=== PATIENT | female | born 1965 | race Two or more races ===

== ENCOUNTER 2017-02-24 10:40 | Outpatient (CLI) ==
[2017-02-24 16:52] LABS: FLU INTERNAL QC INTERNAL QC VALID; RAPID FLU A NEGATIVE (NEGATIVE); RAPID FLU B NEGATIVE (NEGATIVE)
== END 2017-02-24 10:41 | disposition home or self-care (01) ==
LOC: LAB 10:40
PROVIDERS: ATTEND Nurse Practitioner Family
DX: J03.90 Acute tonsillitis, unspecified (principal)
CPT/HCPCS: 87651; 87804; 87880

== ENCOUNTER 2017-09-18 11:09 | Inpatient (IN) ==
[2017-09-18] MEDS ORDERED: SODIUM CHLORIDE 1,000 ML IV STA (12:13)
[2017-09-18] MEDS ORDERED: NORCO 10-325 PO STA (12:14)
[2017-09-18 12:24] LABS: BASOPHILS % (AUTO) 0.6 % (0.0-3.0); EOSINOPHILS # (AUTO) 0.1 K/ul (0.0-0.7); EOSINOPHILS % (AUTO) 0.7 % (0.0-7.0); HEMATOCRIT 43.3 % (37.0-47.0); HEMOGLOBIN 15.7 g/dl (12.0-16.0); IMMATURE GRANULOCYTE % (AUTO) 0.4 % (0.0-5.0); LYMPHOCYTES # (AUTO) 0.9 K/uL (0.60-3.4); LYMPHOCYTES % (AUTO) 11.9 (10.0-50.0); MEAN CORPUSCULAR HEMOGLOBIN 33.1 pg (27.0-31.0); MEAN CORPUSCULAR HGB CONC 36.3 (31.8-35.4); MEAN CORPUSCULAR VOLUME 91.4 fl (81.0-99.0); MONOCYTES # (AUTO) 0.4 K/uL (0.4-2.0); MONOCYTES % (AUTO) 5.6 (0-10); NEUTROPHILS # (AUTO) 5.8 K/ul (2.0-6.9); NEUTROPHILS % (AUTO) 80.8; PLATELET COUNT 193 10^3/uL (140-440); RED BLOOD COUNT 4.74 10^6/ul (4.20-5.40); WHITE BLOOD COUNT 7.16 K/ul (4.6-10.2)
[2017-09-18 12:33] LABS: ALBUMIN 3.3 g/dL (3.4-5.0); ALBUMIN/GLOBULIN RATIO 0.77; ANION GAP 11.8; BILIRUBIN,TOTAL 0.5 mg/dL (0.00-1.20); BUN/CREATININE RATIO 11.76; CREATININE 0.85 mg/dL (0.60-1.30); POTASSIUM 3.8 mmol/L (3.5-5.10); TOTAL PROTEIN 7.6 g/dL (6.4-8.2)
[2017-09-18 12:37] LABS: FLU INTERNAL QC INTERNAL QC VALID; RAPID FLU A NEGATIVE (NEGATIVE); RAPID FLU B NEGATIVE (NEGATIVE)
[2017-09-18 12:54] LABS: ABG BASE EXCESS -6 (-2.0-2.0); ABG PCO2 34.4 mmHg (35-45); ABG PH 7.363 (7.35-7.45)
[2017-09-18 12:55] LABS: ABG HCO3 19.6 (22.0-26.0); ABG TCO2 21 (22.0-28.0)
--- NOTE | 2017-09-18 13:17 | DI ---
EXAM: Chest two view, frontal and lateral views. HISTORY: Cough. COMPARISON: None available. FINDINGS: The heart size is normal. There is no pulmonary vascular congestion. The lungs are clear . No pleural effusion or pneumothorax is seen. No acute osseous abnormality identified. Posterior stabilization ninoska in the thoracolumbar spine is partially imaged. Additional hardware seen in the benjamin bcutaneous tissues of the low back, incompletely imaged. Surgical clips noted in the upper abdomen. IMPRESSION: No acute cardiopulmonary process.
[2017-09-18] MEDS ORDERED: SOLU-MEDROL 125 MG IVP STA (13:55)
[2017-09-18] MEDS ORDERED: SODIUM CHLORIDE 1,000 ML IV SCH (14:00)
--- NOTE | 2017-09-18 14:00 | ED.PDOC ---
General ED Provider: Dr. HALLEY CONTRERAS Chief Complaint: Respiratory Complaint Stated Complaint: cough, short of air Time Seen by Physician: 11:11 Mode of Arrival: Walk-In Information Source: Patient Exam Limitations: No limitations Primary Care Provider: UMA ALICIA Nursing and Triage Documentation Reviewed and Agree: Yes Respiratory Complaint Exam - Shortness of Air Complaint/Exam Onset/Duration: 2 day Symptoms Are: Still present Timing: Intermittent Initial Severity: Mild Current Severity: Mild Character: Reports: Dyspnea on exertion Aggravating: Reports: URI, Weather Alleviating: Reports: Bronchodilators, Upright position Associated Signs and Symptoms: Reports: Nasal congestion. Denies: Cough, Wheezing, Chest pain with cough, Chest pain, Fever, Chills, Diaphoresis, Dizziness, Calf pain, Calf swelling, Edema, Rapid breathing, Labored breathing, Decreased intake Related History: Reports: Similar episode History of Healthcare-Acquired Pneumonia: No Pulmonary Embolism Risk Factors: Reports: Smoking Cardiac Risk Factors: Reports: Smoking Pseudomonas Risk Factors: Reports: None Tuberculosis Risk Factors: Reports: None Home Oxygen Use: No Recent Stress Test: No Recent Echo/LV Function: No Respiratory Distress: Mild Stridor Present: No Tracheal Deviation: No Subcutaneous Emphysema: No Accessory Muscle Use: No Retractions: Not Present Diminished Breath Sounds: Yes Prolonged Expiratory Phase: Yes Unable to Speak Full Sentences: No Fatigue: No Leg Swelling: No Micaela's Sign Present: No Grunting Respirations: No Kussmaul Respirations: No Differential Diagnoses: Asthma, COPD Exacerbation, Pneumonia, Bronchitis, URI Review of Systems - Review Of Systems Constitutional: Reports: Malaise Eyes: Reports: No symptoms Ears, Nose, Mouth, Throat: Reports: No symptoms Respiratory: Reports: Cough, Wheezing Cardiac: Reports: No symptoms GI: Reports: No symptoms : Reports: No symptoms Musculoskeletal: Reports: No symptoms Skin: Reports: No symptoms Neurological: Reports: No symptoms Endocrine: Reports: No symptoms Hematologic/Lymphatic: Reports: No symptoms All Other Systems: Reviewed and Negative Past Medical History - Past Medical History Previously Healthy: Yes Endocrine: Reports: None Cardiovascular: Reports: None Respiratory: Reports: None Hematological: Reports: None Gastrointestinal: Reports: None Genitourinary: Reports: None Neuro/Psych: Reports: None Musculoskeletal: Reports: None Cancer: Reports: None Last Menstrual Period: n/a - Surgical History General Surgical History: Reports: None - Family History Family History: Reports: None - Social History Smoking Status: Current every day smoker Hx Substance Use: No Alcohol Screening: None Physical Exam - Physical Exam Appearance: Well-appearing, No pain distress, Well-nourished Eyes: FLORINA, EOMI, Conjunctiva clear ENT: Ears normal, Nose normal, Oropharynx normal Respiratory: Airway patent, Breath sounds clear, Breath sounds equal, Respirations nonlabored Cardiovascular: RRR, Pulses normal, No rub, No murmur GI/: Soft, Nontender, No masses, Bowel sounds normal, No Organomegaly Musculoskeletal: Normal strength, ROM intact, No edema, No calf tenderness Skin: Warm, Dry, Normal color Neurological: Sensation intact, Motor intact, Reflexes intact, Cranial nerves intact, Alert, Oriented Psychiatric: Affect appropriate, Mood appropriate Interpretation - Radiology Interpretation Radiology Interpretation By: Radiologist Radiology Results: No acute changes Physician Notification - Case Discussed Physician Notified: [email or web address] Time of Notification: 14:01 Admit To: Inpatient Critical Care Note - Critical Care Note Total Time (mins): 0 Course - Course Hematology/Chemistry: 09/18/17 12:08 09/18/17 12:08 Orders, Labs, Meds: Lab Review 09/18/17 09/18/17 09/18/17 12:08 12:08 12:15 WBC 7.16 RBC 4.74 Hgb 15.7 Hct 43.3 MCV 91.4 MCH 33.1 H MCHC 36.3 H RDW Coeff of Ivy 12.7 Plt Count 193 Immature Gran % (Auto) 0.4 Neut % (Auto) 80.8 Lymph % (Auto) 11.9 Vermillion % (Auto) 5.6 Eos % (Auto) 0.7 Baso % (Auto) 0.6 Immature Gran # (Auto) 0.0 Neut # 5.8 Lymph # 0.9 Vermillion # 0.4 Eos # 0.1 Baso # 0.0 Puncture Site O2 Saturation ABG pH ABG pCO2 ABG pO2 ABG HCO3 ABG Total CO2 ABG Base Excess Massimo Test FiO2 % Sodium 136 Potassium 3.8 Chloride 105 Carbon Dioxide 23 Anion Gap 11.8 BUN 10 Creatinine 0.85 Estimated GFR (MDRD) 71.00 BUN/Creatinine Ratio 11.76 Glucose 119 H Calcium 9.0 Total Bilirubin 0.50 AST 39 H ALT 35 Alkaline Phosphatase 107 H Total Protein 7.6 Albumin 3.3 L Globulin 4.3 Albumin/Globulin Ratio 0.77 Influenza A (Rapid) Negative Influenza B (Rapid) Negative 09/18/17 12:33 WBC RBC Hgb Hct MCV MCH MCHC RDW Coeff of Ivy Plt Count Immature Gran % (Auto) Neut % (Auto) Lymph % (Auto) Vermillion % (Auto) Eos % (Auto) Baso % (Auto) Immature Gran # (Auto) Neut # Lymph # Vermillion # Eos # Baso # Puncture Site Rr O2 Saturation 93.0 L ABG pH 7.363 ABG pCO2 34.4 L ABG pO2 70.0 L ABG HCO3 19.6 L ABG Total CO2 21 L ABG Base Excess -6 L Massimo Test + FiO2 % 21.0 Sodium Potassium Chloride Carbon Dioxide Anion Gap BUN Creatinine Estimated GFR (MDRD) BUN/Creatinine Ratio Glucose Calcium Total Bilirubin AST ALT Alkaline Phosphatase Total Protein Albumin Globulin Albumin/Globulin Ratio Influenza A (Rapid) Influenza B (Rapid) Orders Category Date Time Status ADMIT PATIENT INPATIENT .TO [facility] (MONITORED BED) ADMISSION 09/18/17 13: 55 Ordered ABG DRAW REQUEST Stat CARDIO 09/18/17 12:33 Completed EKG-(ED ONLY) Stat CARDIO 09/18/17 12:10 Completed EKG-(IP & OP ONLY) DAILY CARDIO 09/19/17 06:00 Ordered EKG-(IP & OP ONLY) DAILY CARDIO 09/20/17 06:00 Ordered EKG-(IP & OP ONLY) DAILY CARDIO 09/21/17 06:00 Ordered NEBULIZER TREATMENT Routine CARDIO 09/18/17 13:55 Ordered ACTIVITY .BR with BRP CARE 09/18/17 13:55 Ordered BLOOD GLUCOSE MONITORING ACCUCHECK Q6H CARE 09/18/17 13:55 Ordered TELEMETRY MONITORING TELE CARE 09/18/17 13:56 Ordered VITAL SIGNS Q8HR CARE 09/18/17 13:55 Ordered REGULAR DIET DIETARY 09/18/17 Lunch Ordered ED IV/MEDIPORT/POWERPORT .ONCE EMERGENCY 09/18/17 12:13 Active ABG Stat LAB 09/18/17 12:33 Completed CBC W/ AUTO DIFF DAILY@0600 LAB 09/19/17 06:00 Ordered CBC W/ AUTO DIFF DAILY@0600 LAB 09/20/17 06:00 Ordered CBC W/ AUTO DIFF Stat LAB 09/18/17 12:08 Completed COMPREHENSIVE METABOLIC PANEL DAILY@0600 LAB 09/19/17 06:00 Ordered COMPREHENSIVE METABOLIC PANEL DAILY@0600 LAB 09/20/17 06:00 Ordered COMPREHENSIVE METABOLIC PANEL Stat LAB 09/18/17 12:08 Completed CREATINE KINASE Q8H LAB 09/18/17 20:00 Ordered CREATINE KINASE Q8H LAB 09/19/17 04:00 Ordered MOLECULAR GROUP A STREP Stat LAB 09/18/17 12:15 Results RAPID FLU A/B Stat LAB 09/18/17 12:15 Completed STREP SCREEN Stat LAB 09/18/17 12:15 Results TROPONIN I Q8H LAB 09/18/17 20:00 Ordered TROPONIN I Q8H LAB 09/19/17 04:00 Ordered 0.9 % Sodium Chloride [Saline Flush] MEDS 09/18/17 12:11 Active 1 syr IVF PRN PRN Ceftriaxone Sodium [Rocephin] 1 gm MEDS 09/19/17 09:00 Ordered 0.9 % Sodium Chloride [Sodium Chloride] 50 ml IV DAILY Hydrocodone Bit/Acetaminophen [Mcallister 10-325] MEDS 09/18/17 12:14 Discontinued 1 tab PO ONCE STA Ipratropium/Albuterol Neb [Duoneb] MEDS 09/18/17 18:00 Ordered 1 vial NEB RTQ6H Methylprednisolone Sod Succ/Pf [Solu-Medrol 125 mg] MEDS 09/18/17 13:55 Stat 125 mg IVP ONCE STA Sodium Chloride 0.9% [Sodium Chloride] 1,000 ml MEDS 09/18/17 14:00 Ordered IV 75 mls/hr Sodium Chloride 0.9% [Sodium Chloride] 1,000 ml MEDS 09/18/17 12:13 Discontinued IV BOLUS CHEST, 2 VIEWS PA & LAT Stat RADS 09/18/17 12:01 Completed Medications Generic Name Dose Route Start Last Admin Trade Name Freq PRN Reason Stop Dose Admin Albuterol/Ipratropium 1 vial 09/18/17 18:00 Duoneb NEB RTQ6H SHAYY Sodium Chloride 1 syr 09/18/17 12:11 Saline Flush IVF PRN PRN To flush IV Discontinued Medications Generic Name Dose Route Start Last Admin Trade Name Freq PRN Reason Stop Dose Admin Acetaminophen/Hydrocodone Bitart 1 tab 09/18/17 12:14 09/18/17 12:37 Mcallister 10-325 PO 09/18/17 12:15 1 tab ONCE STA Administration Sodium Chloride 1,000 mls @ 1,000 mls/hr 09/18/17 12:13 09/18/17 12:36 Sodium Chloride IV 09/18/17 13:12 1,000 mls/hr BOLUS STA Administration Methylprednisolone Sodium Succinate 125 mg 09/18/17 13:55 Solu-Medrol 125 Mg IVP 09/18/17 13:56 ONCE STA Vital Signs: Temp Pulse Resp BP Pulse Ox 09/18/17 11:11 99.2 F 65 20 107/71 98 Departure - Departure Time of Disposition: 14:01 Disposition: ADMITTED INPATIENT Discharge Problem: Shortness of breath Instructions: Dyspnea (ED), Shortness of Breath (ED) Condition: Good Pt referred to PMD for follow-up: Yes Additional Instructions: Please call your Family Physician as soon as possible to schedule a follow-up appointment. Allergies/Adverse Reactions: Allergies erythromycin base Allergy (Severe, Verified 09/18/17 11:15) Mouth and throat crowley and swells Patient to notify drugstore Home Medications: Ambulatory Orders Albuterol Sulfate [Proair Hfa] 8.5 gm IH TID PRN 02/24/17 Baclofen 10 mg PO TID 02/24/17 Budesonide/Formoterol Fumarate [Symbicort 160-4.5 Mcg Inhaler] 10.2 gm IH BID Celecoxib [Celebrex] 200 mg PO BID 02/24/17 Clobetasol Propionate/Emoll [Clobetasol Emollient 0.05% Crm] 60 gm TP BID Ergocalciferol (Vitamin D2) [Vitamin D2] 50,000 unit PO WEEKLY 02/24/17 Ixekizumab [Taltz Syringe] 80 mg SQ MONTHLY 02/24/17 Prednisone 5 mg PO BEDTIME 02/24/17 Topiramate [Topamax] 200 mg PO BID 02/24/17 Vistaril 25 mg PO 1-2 caps every 6 hrs PRN 02/24/17 Zolpidem Tartrate [Ambien] 10 mg PO BEDTIME 02/24/17 Oxycodone-Acetaminophen 10-325 [Percocet 10-325] 1 tab PO QID PRN 09/18/17 Sumatriptan Succinate [Imitrex] 25 mg PO ONCE PRN 11/13/17
[2017-09-18] MEDS ORDERED: PROAIR HFA IH PRN (14:30)
[2017-09-18] MEDS: BACLOFEN PO SCH ×2 (14:52→20:29)
[2017-09-18 15:09] VITALS: BMI 33.7
[2017-09-18] MEDS: DUONEB NEB SCH ×2 (17:02→23:00)
[2017-09-18] MEDS ORDERED: IMITREX PO SCH (18:32)
[2017-09-18] MEDS ORDERED: VISTARIL PO PRN (18:32)
[2017-09-18] MEDS ORDERED: IXEKIZUMAB 80 MG SQ SCH (18:45)
[2017-09-18] MEDS: PHENERGAN WITH CODEINE 6.25/10 MG/5 ML PO PRN (18:45)
[2017-09-18] MEDS ORDERED: PREDNISONE ONE (20:24)
[2017-09-18] MEDS: SYMBICORT 160-4.5 MCG INHALER IH SCH (20:27)
[2017-09-18] MEDS: SOLU-MEDROL 125 MG IVP SCH (20:27)
[2017-09-18] MEDS: PREDNISONE PO SCH (20:28)
[2017-09-18] MEDS: TOPAMAX PO SCH (20:29)
[2017-09-18 20:44] LABS: CREATINE KINASE 604 U/L
[2017-09-18 20:45] LABS: CREATINE KINASE MB 1.5 ng/ml (0.0-3.6)
[2017-09-18] MEDS ORDERED: TOPIRAMATE 200 MG PO SCH (21:00)
[2017-09-18] MEDS ORDERED: NON-FORMULARY MEDICATION (Celecoxib [Celebrex] 200 MG) PO SCH ×22 (21:00)
[2017-09-18] MEDS ORDERED: NON-FORMULARY MEDICATION (Zolpidem Tartrate [Ambien] 10 MG) PO SCH (21:00)
[2017-09-19] MEDS: PHENERGAN WITH CODEINE 6.25/10 MG/5 ML PO PRN ×2 (00:29→06:15)
[2017-09-19] MEDS: SOLU-MEDROL 125 MG IVP SCH ×3 (04:07→20:49)
[2017-09-19] MEDS: DUONEB NEB SCH ×4 (05:00→22:55)
[2017-09-19 05:29] LABS: BASOPHILS % (AUTO) 0.2 % (0.0-3.0); HEMATOCRIT 39.8 % (37.0-47.0); HEMOGLOBIN 14.5 g/dl (12.0-16.0); IMMATURE GRANULOCYTE % (AUTO) 0.8 % (0.0-5.0); LYMPHOCYTES # (AUTO) 1.2 K/uL (0.60-3.4); LYMPHOCYTES % (AUTO) 23.7 (10.0-50.0); MEAN CORPUSCULAR HEMOGLOBIN 32.8 pg (27.0-31.0); MEAN CORPUSCULAR HGB CONC 36.4 (31.8-35.4); MONOCYTES # (AUTO) 0.3 K/uL (0.4-2.0); MONOCYTES % (AUTO) 5.9 (0-10); NEUTROPHILS # (AUTO) 3.5 K/ul (2.0-6.9); NEUTROPHILS % (AUTO) 69.4; PLATELET COUNT 189 10^3/uL (140-440); RED BLOOD COUNT 4.42 10^6/ul (4.20-5.40); WHITE BLOOD COUNT 5.06 K/ul (4.6-10.2)
[2017-09-19 05:49] LABS: ALBUMIN 3.2 g/dL (3.4-5.0); ALBUMIN/GLOBULIN RATIO 0.78; ANION GAP 14.1; BILIRUBIN,TOTAL 0.37 mg/dL (0.00-1.20); BUN/CREATININE RATIO 10.66; CALCIUM 8.9 mg/dL (8.2-10.2); CREATININE 0.75 mg/dL (0.60-1.30); POTASSIUM 4.1 mmol/L (3.5-5.10); TOTAL PROTEIN 7.3 g/dL (6.4-8.2)
[2017-09-19 06:06] LABS: CREATINE KINASE 872 U/L; CREATINE KINASE MB 2.8 ng/ml (0.0-3.6)
[2017-09-19] MEDS ORDERED: VISTARIL PO PRN (07:20)
[2017-09-19] MEDS: SODIUM CHLORIDE 1,000 ML IV SCH ×2 (07:55→17:06)
[2017-09-19] MEDS ORDERED: IMITREX PO PRN (07:57)
[2017-09-19] MEDS: ROCEPHIN 1 GM in SODIUM CHLORIDE 50 ML IV SCH (09:01)
[2017-09-19] MEDS: PREDNISONE PO SCH ×2 (09:03→20:46)
[2017-09-19] MEDS: SYMBICORT 160-4.5 MCG INHALER IH SCH ×2 (09:04→20:46)
[2017-09-19] MEDS: TOPAMAX PO SCH ×2 (09:04→20:47)
[2017-09-19] MEDS: TESSALON PERLES PO SCH ×3 (09:04→20:49)
[2017-09-19] MEDS: BACLOFEN PO SCH ×3 (09:04→20:46)
[2017-09-19] MEDS: PHENERGAN WITH CODEINE 6.25/10 MG/5 ML PO SCH ×2 (09:04→15:04)
--- NOTE | 2017-09-19 12:59 | CT ---
EXAM: CT ABDOMEN AND PELVIS HISTORY: Right-sided abdominal pain, cough TECHNIQUE: CT abdomen and pelvis without intravenous contrast. Images were reconstructed using 5 mm section thickness. Reformations were prepared. COMPARISON: None FINDINGS: Diagnostic limitations exist without including contrast enhanced images. No focal hepatic or splenic lesions identified. Gallbladder is absent. Pancreas and adrenal glands appear normal. Kidneys and ureters are within normal limits. Mild atherosclerotic disease. A few mildly prominent, nonspecifi c periaortic lymph nodes. Stomach is normal in appearance. Patient has a history of previous appendectomy. Subtle sigmoid div erticulosis. Normal bowel gas pattern. No uterus is identified. Urinary bladder is normal. No asc ites or inflammatory infiltration of the abdominal fat. No ventral abdominal wall hernia. Bones appear demineralized. There is moderate scoliosis convex to the left with stabilization bars in place. Transitional vertebral body anatomy at the lumbosacral j unction No acute fracture is seen. Lung bases are clear. No pneumoperitoneum. IMPRESSION: 1. No etiology for the patient's right-sided abdominal pain is identified. Chronic bony findings wi th no acute fracture. 2. Nonspecific mildly prominent periaortic lymph nodes. 3. Mild atherosclerosis.
[2017-09-19] MEDS ORDERED: TUSSIONEX PO STA (16:49)
[2017-09-19] MEDS: TUSSIONEX PO SCH (17:50)
[2017-09-19] MEDS: CELEBREX PO SCH (20:48)
[2017-09-19] MEDS: AMBIEN PO SCH (22:49)
[2017-09-20] MEDS: DUONEB NEB SCH ×4 (05:18→23:20)
[2017-09-20 05:44] LABS: HEMATOCRIT 38.8 % (37.0-47.0); HEMOGLOBIN 14.1 g/dl (12.0-16.0); MEAN CORPUSCULAR HEMOGLOBIN 32.8 pg (27.0-31.0); MEAN CORPUSCULAR HGB CONC 36.3 (31.8-35.4); MEAN CORPUSCULAR VOLUME 90.2 fl (81.0-99.0); PLATELET COUNT 205 10^3/uL (140-440); WHITE BLOOD COUNT 5.68 K/ul (4.6-10.2)
[2017-09-20 05:59] LABS: ALBUMIN 3.2 g/dL (3.4-5.0); ALBUMIN/GLOBULIN RATIO 0.8; ANION GAP 12.4; BILIRUBIN,TOTAL 0.36 mg/dL (0.00-1.20); BUN/CREATININE RATIO 13.69; CREATININE 0.73 mg/dL (0.60-1.30); POTASSIUM 3.4 mmol/L (3.5-5.10); TOTAL PROTEIN 7.2 g/dL (6.4-8.2)
[2017-09-20] MEDS: SOLU-MEDROL 125 MG IVP SCH ×3 (06:03→20:17)
[2017-09-20] MEDS: TUSSIONEX PO SCH ×2 (06:04→17:07)
[2017-09-20 06:21] LABS: ANISOCYTOSIS NOT PRESENT (NOT PRESENT)
[2017-09-20] MEDS ORDERED: DRISDOL PO SCH (09:00)
[2017-09-20] MEDS: BACLOFEN PO SCH ×3 (09:15→20:18)
[2017-09-20] MEDS: SYMBICORT 160-4.5 MCG INHALER IH SCH ×2 (09:15→20:40)
[2017-09-20] MEDS: PREDNISONE PO SCH ×2 (09:15→20:18)
[2017-09-20] MEDS: ROCEPHIN 1 GM in SODIUM CHLORIDE 50 ML IV SCH (09:15)
[2017-09-20] MEDS: TESSALON PERLES PO SCH ×3 (09:15→20:18)
[2017-09-20] MEDS: TOPAMAX PO SCH ×2 (09:15→20:17)
[2017-09-20] MEDS: SODIUM CHLORIDE 1,000 ML IV SCH (10:59)
[2017-09-20] MEDS: CELEBREX PO SCH (20:18)
[2017-09-20] MEDS: AMBIEN PO SCH (20:18)
[2017-09-20] MEDS: PERCOCET 10-325 PO PRN (20:18)
[2017-09-21] MEDS: SODIUM CHLORIDE 1,000 ML IV SCH ×2 (04:08→20:15)
[2017-09-21] MEDS: SOLU-MEDROL 125 MG IVP SCH ×3 (04:09→20:08)
[2017-09-21] MEDS: DUONEB NEB SCH ×4 (05:20→22:20)
[2017-09-21] MEDS: TUSSIONEX PO SCH ×2 (05:58→17:14)
[2017-09-21] MEDS: SYMBICORT 160-4.5 MCG INHALER IH SCH ×2 (08:08→20:26)
[2017-09-21] MEDS: ROCEPHIN 1 GM in SODIUM CHLORIDE 50 ML IV SCH (08:08)
[2017-09-21] MEDS: BACLOFEN PO SCH ×3 (08:09→20:26)
[2017-09-21] MEDS: TOPAMAX PO SCH ×2 (08:09→20:27)
[2017-09-21] MEDS: PERCOCET 10-325 PO PRN ×2 (08:09→15:52)
[2017-09-21] MEDS: PREDNISONE PO SCH ×2 (08:09→20:27)
[2017-09-21] MEDS: TESSALON PERLES PO SCH ×3 (08:09→20:26)
--- NOTE | 2017-09-21 11:29 | DI ---
Exam: Two x-rays of the chest. Comparison: 09/18/2017. Reason for exam: Shortness of air. FINDINGS: Laminar hook and cerclage wire fixation is seen in the thoracolumbar spine. No pneumothor ax, pleural effusion, or focal consolidation. The cardiac silhouette is unchanged. There is similar appearing prominence of the left hilar region. The imaged osseous structures are diffusely deminera lized. Impression: Stable appearance of the chest without pneumothorax or focal consolidation
--- NOTE | 2017-09-21 15:08 | PN ---
DATE OF SERVICE: 09/20/17 SUBJECTIVE: The patient was admitted with asthmatic exacerbation and bronchitis. Still having cough and congestion. Tussionex really helped her and was able to rest some yesterday. Started having some yellow/green phlegm. REVIEW OF SYSTEMS: CONSTITUTIONAL: No fever, no chills. HEENT: Normal. ENDOCRINE: No weight gain, no weight loss. CVS: No angina symptoms. No CHF symptoms. No palpitations. No atypical chest pain for CAD. No shortness of breath. No PND, no orthopnea. RESPIRATORY: Cough, no hemoptysis. GI: No nausea, no vomiting. No abdominal pain. : No hematuria. No polyuria. MUSCULOSKELETAL:. No joint swelling. PSYCHIATRIC: Not anxious. No depression. No suicidal thoughts. No homicidal thoughts. SKIN: Intact. No rash. PHYSICAL EXAMINATION: V/S: Blood pressure 145/90, respiratory rate 20, heart rate 95 and temperature 98.4 with saturation 96% on the room air. GENERAL: Morbidly obese lady, sitting in the bed and not in any distress. HEENT: Normocephalic, atraumatic. Mucosa dry. Pallor positive. No icterus. NECK: Supple. No JVD, no carotid bruit. No lymphadenopathy. LUNGS: Decreased with basilar crackles. Mild wheeze.Clear to auscultation. No rales or rhonchi. HEART: S1, S2 normal. No S3. No murmur, gallop or regurgitation. ABDOMEN: Soft, nontender. Bowel sounds active. No rigidity. No rebound or guarding. No CVA tenderness. EXTREMITIES: No clubbing, cyanosis or pedal edema. MUSCULOSKELETAL: No joint swelling. NEUROLOGIC: Awake, alert, oriented times three. No focal deficit. LYMPHATIC: No lymph nodes palpable. SKIN: Intact. LABS: WBC 5.68, hgb 14.1, hct 38.8, plt count 205, sodium 137, potassium 3.4, chloride 108, bicarb 20, BUN 10, creatinine 0.73, glucose 158. ASSESSMENT: 1. Asthmatic exacerbation secondary to the bronchitis 2. Shortness of breath secondary to the same 3. Hypokalemia 4. Hypertension 5. Dyslipidemia 6. Abdominal pain which is negative for the CAT scan 7. History of Ventriculoperitoneal shunt 8. Hysterectomy 9. Endometriosis PLAN: 1. Continue the breathing treatments 2. Solu-Medrol 3. IV fluids 4. Tussionex 5. I&O's 6. Out of bed to chair activity as tolerated TIME SPENT: More than 35 minutes MTDD
--- NOTE | 2017-09-21 15:46 | PN ---
DATE OF SERVICE: 09/19/17 SUBJECTIVE: The patient was admitted with shortness of breath and asthma exacerbation. REVIEW OF SYSTEMS: CONSTITUTIONAL: No fever, no chills. HEENT: Normal. ENDOCRINE: No weight gain, no weight loss. CVS: No angina symptoms. No CHF symptoms. No palpitations. No atypical chest pain for CAD. No shortness of breath. No PND, no orthopnea. RESPIRATORY: Cough and hemoptysis. GI: No nausea, no vomiting. No abdominal pain. Right sided flank pain and rib pain. : No hematuria. No polyuria. MUSCULOSKELETAL:. No joint swelling. PSYCHIATRIC: Not anxious. No depression. No suicidal thoughts. No homicidal thoughts. SKIN: Intact. No rash. PHYSICAL EXAMINATION: V/S: Blood pressure 128/68, respiratory rate 20, heart rate 95 with saturation 96% on 2 liters. HEENT: Normocephalic, atraumatic. Mucosa dry. NECK: Supple. No JVD, no carotid bruit. No lymphadenopathy. LUNGS: Decreased and basilar crackles. Mild wheeze. Clear to auscultation. No rales or rhonchi. HEART: S1, S2 normal. No S3. No murmur, gallop or regurgitation. ABDOMEN: Obese patient. Soft, nontender. Bowel sounds active. No rigidity. No rebound or guarding. No CVA tenderness. Some kind of discomfort on the right upper belly. EXTREMITIES: No clubbing, cyanosis or pedal edema. MUSCULOSKELETAL: No joint swelling. NEUROLOGIC: Awake, alert, oriented times three. No focal deficit. LYMPHATIC: No lymph nodes palpable. SKIN: Intact. LABS: WBC 5.06, hgb 14.5, hct 39.8, plt count 189, sodium 138, potassium 4.1, chloride 106, bicarb 22, BUN 8, creatinine 0.75, glucose 141. ASSESSMENT: 1. Asthmatic exacerbation 2. Abdominal pain 3. Morbid obesity 4. History of normal pressure hydrocephalus with the [employer] shunt put in PLAN: 1. Increase the Phenergan and Codeine to 10ml Q 8 hours 2. Solu-Medrol, Rocephin and DUO NEBS 3. CT abdomen and pelvis TIME SPENT: More than 35 minutes MTDD
[2017-09-21] MEDS: CELEBREX PO SCH (20:26)
[2017-09-21] MEDS: AMBIEN PO SCH (20:28)
[2017-09-22] MEDS: SOLU-MEDROL 125 MG IVP SCH (05:02)
[2017-09-22] MEDS: TUSSIONEX PO SCH (05:03)
[2017-09-22] MEDS: DUONEB NEB SCH (05:19)
[2017-09-22] MEDS: PREDNISONE PO SCH (07:59)
[2017-09-22] MEDS: PERCOCET 10-325 PO PRN (07:59)
[2017-09-22] MEDS: TOPAMAX PO SCH (07:59)
[2017-09-22] MEDS: BACLOFEN PO SCH (08:00)
[2017-09-22] MEDS: TESSALON PERLES PO SCH (08:00)
[2017-09-22] MEDS: ROCEPHIN 1 GM in SODIUM CHLORIDE 50 ML IV SCH (08:01)
[2017-09-22] MEDS: SYMBICORT 160-4.5 MCG INHALER IH SCH (08:01)
--- NOTE | 2017-09-22 08:25 | HP ---
DATE OF SERVICE: 09/18/17 CHIEF COMPLAINT: Coughing, congestion and shortness of breath. HISTORY OF PRESENT ILLNESS: This is a 52 year old female was seen by PMD a couple of days ago, Monica Sanhcez for the cough and congestion, non productive. The patient was given some antibiotics. The patient still not feeling better still coughing and congestion , hurting in the ribs, shortness of breath, not feeling good, shortness of breath and sore throat. She came to the emergency room and was seen by Dr. Case in the emergency room blood pressure was 107/71, labs showed the normal hgb, ABG showed the pH 7.363, pCO2 34.4, pO2 70. First set of cardiac enzymes are negative. EKG was normal. At that time after giving a steroid shot and breathing treatment the patient still having cough and congestion and shortness of breath. At that time the patient being admitted to the hospital for COPD exacerbation, bronchitis and shortness of breath. REVIEW OF SYSTEMS: CONSTITUTIONAL: No fever, no chills. Weakness and tiredness. HEENT: Normal. ENDOCRINE: No weight gain; no weight loss. CVS: No chest pain. No PND, no orthopnea. Shortness of breath. No PND, no orthopnea. RESPIRATORY: Cough and congestion. No hemoptysis. GI: No nausea, no vomiting. No abdominal pain. No melena. : No hematuria. No polyuria. MUSCULOSKELETAL: No joint swelling. PSYCHIATRIC: Not anxious. No depression. No suicidal thoughts. No homicidal thoughts. SKIN: Intact, no open lesions. PAST MEDICAL HISTORY: Brain shunt placed at the base of the spine to help drain the spinal fluid, DERRICK WORKER shunt Asthmatic bronchitis Osteoarthritis Nicotine use Autoimmune disorders PAST SURGICAL HISTORY: Complete hysterectomy secondary to the endometriosis PERSONAL HISTORY: Smoking. No alcohol and no drugs. Family History is significant for the cancer. MEDICATIONS: Celebrex Baclofen Vitamin D Topamax Clobetasol Cymbalta Zolpidem Vistaril Oxycodone Sumatriptan ALLERGIES: Erythromycin base PHYSICAL EXAMINATION: V/S: Blood pressure 115/70, respiratory rate 18, heart rate 88, temperature 97.8 with saturation on 2 liters. GENERAL: Sick looking lady laying in the bed. HEENT: Atraumatic, normocephalic. No scleral icterus. Mucosa dry NECK: Supple. No JVD, no bruit. No lymphadenopathy. No thyromegaly. HEART: S1, S2 normal. No murmur. No cyanosis or clubbing. No ascites. LUNGS: Decreased and clear to auscultation. No rales or rhonchi. ABDOMEN: Soft, nontender. Bowel sounds are active. No CVA tenderness. No rigidity or guarding. EXTREMITIES: No cyanosis, clubbing or pedal edema. MUSCULOSKELETAL: Normal joints, no swelling. NEUROLOGIC: The patient is awake and alert. SKIN: Intact; no open lesions. LYMPHATIC: No lymph nodes palpable. LABS: Sodium 136, potassium 3.8, chloride 105, bicarb 23, BUN 10, creatinine 0.85, glucose 119. First set of cardiac enzymes are negative. WBC 7.16, hgb 15.7, hct 43.3, plt count 193. ASSESSMENT: 1. Asthmatic exacerbation secondary to the bronchitis 2. Shortness of breath 3. Obesity PLAN: 1. Admit patient to the regular floor 2. Rocephin 1 gram daily 3. Breathing treatments 4. Solu-Medrol 5. Phenergan with Codeine 6. IV fluids 7. Daily I&O's TIME SPENT: MORE THAN 70 minutes MTDD
[2017-09-22 09:49] VITALS: BP 128/82; TEMP 97.8
--- NOTE | 2017-09-25 15:12 | DS ---
DATE OF SERVICE: 09/22/17 FINAL DIAGNOSIS: 1. Asthmatic exacerbation secondary to the acute bronchitis 2. Shortness of breath secondary to the same 3. Hypokalemia 4. Hypertension 5. Dyslipidemia 6. Abdominal pain which is negative per the CAT scan 7. History of ventriculoperitoneal shunt 8. Obesity DISCHARGE INSTRUCTIONS: Discharge the patient home. Followup with the [facility] within 5-7 days. MEDICATIONS AT DISCHARGE: Albuterol Symbicort Celebrex Vitamin D Taltz Syringe Oxycodone Prednisone Imitrex Topamax Vistaril Ambien NEW PRESCRIPTIONS: Keflex 500mg twice a day for 5 days Prednisone 10mg twice a day Tussionex DIET INSTRUCTIONS: As tolerated, gradually resume regular diet ACTIVITY: As much as tolerated SMOKING: Counseling for smoking done DISEASE SPECIFIC EDUCATION: Asthma use of inhaler Pneumonia and pneumonia vaccination been discussed. HOSPITAL COURSE: Consuelo Mendez 52 year old female came to the emergency room with the cough and congestion, shortness of breath for which the patient has seen the PMD. Started her on the antibiotics and steroids and did not help the patient. Came to the emergency room and was seen by Dr. Case in the emergency room. ABG was pH 7.363, pCO2 34.4, pO2 70, chest x-ray was negative for pneumonia, asthmatic exacerbation been treated for the Rocephin, Solu-Medrol and breathing treatment. Cough medication was being given. Tussionex which did help the patient. The patient been complaining that she had been hurting right flank area from the coughing, worried that the patient has a ventriculoperitoneal shunt placed and it maybe hurting her. We did the CT scan of the abdomen and did not show any acute findings with the ventriculoperitoneal shunt which is in place. Gradually the patient is up and about walking. Still had some shortness of breath but a lot improved. At that time the patient been discharged home. TIME SPENT: MORE THAN 55 MINUTES MTDD
== END 2017-09-22 10:25 | disposition home or self-care (01) | DRG 202 ==
LOC: ED 11:09 → MEDSURG B 14:06
PROVIDERS: ADMIT Emergency Medicine; ATTEND Emergency Medicine
DX: J45.901 Unspecified asthma with (acute) exacerbation (principal); J44.0 Chronic obstructive pulmonary disease with (acute) lower respiratory infection; J20.9 Acute bronchitis, unspecified; E87.6 Hypokalemia; I10 Essential (primary) hypertension; R10.9 Unspecified abdominal pain; E66.01 Morbid (severe) obesity due to excess calories; R06.02 Shortness of breath; E78.5 Hyperlipidemia, unspecified; N80.9 Endometriosis, unspecified; F17.200 Nicotine dependence, unspecified, uncomplicated; Z98.2 Presence of cerebrospinal fluid drainage device; Z90.710 Acquired absence of both cervix and uterus; Z79.899 Other long term (current) drug therapy
CPT/HCPCS: 36415; 80053; 82550; 82553; 82803; 82962; 84484; 85007; 85025; 87651; 87804; 87880; 93005; 93010; 94640; 96361; 96374; 99284

== ENCOUNTER 2017-11-05 15:17 | Emergency (ER) ==
[2017-11-05 15:25] VITALS: BP 109/74; TEMP 98.5; BMI 32.8
[2017-11-05] MEDS ORDERED: DILAUDID 2 MG/ML SYRINGE IM STA (15:32)
[2017-11-05] MEDS ORDERED: PHENERGAN 25 MG/ML VIAL IM STA (15:32)
--- NOTE | 2017-11-05 16:25 | CT ---
EXAM: CT cervical spine without contrast. TECHNIQUE: Axial CT of the cervical spine was performed without contrast with coronal and sagittal r econstructions. HISTORY: Trauma and neck pain COMPARISON: None FINDINGS: There is no acute fracture or subluxation. Alignment of the cervical spine is anatomic. There is no acute bony effacement of the canal or the foramina. The dens is intact. The craniocervi oly junction is anatomically aligned. The visualized portion of the temporal bones is normal. The facets are properly aligned. There is no evidence for transverse or spinous process fracture. The la flip are intact. There is some mild degenerative change noted. There are no upper thoracic posterior rib fractures. There is no apical pneumothorax. There are no acute soft tissue abnormalities. The prevertebral soft tissues are normal thickness. Visualized intr acranial contents show no acute abnormality. There is opacification in the left maxillary sinus consi stent with chronic sinusitis. IMPRESSION: No acute osseous abnormality in the cervical spine.
--- NOTE | 2017-11-05 16:30 | CT ---
EXAM: CT of the head without contrast. HISTORY: Fall. COMPARISON: None available. TECHNIQUE: Noncontrast CT of the head. FINDINGS: No intracranial hemorrhage is identified. The sulci and ventricles appear within normal limits. The re is suspected low-lying cerebellar tonsils, not well evaluated in this exam due to streak artifacts . The calvarium is intact. There is mild dependent mucosal thickening versus fluid within the left maxi llary sinus. IMPRESSION: No intracranial hemorrhage identified. Suspected low-lying cerebellar tonsils, not well evaluated in this exam. MRI is recommended for furth er evaluation. Mild left maxillary sinus disease.
--- NOTE | 2017-11-05 16:44 | CT ---
EXAM: CT chest without contrast TECHNIQUE: Helical axial CT of the chest was performed without contrast with coronal and sagittal rec onstructions. COMPARISON: CT thoracic spine from same day HISTORY: Trauma FINDINGS: Lung parenchyma: There is no mass or nodule or large effusion or infiltrate. There is some minimal at electasis in the right base. There is no pneumothorax. Mediastinum: No pathologic hilar or mediastinal adenopathy. No significant coronary calcifications. T here is no pericardial effusion. There is some minimal calcific atherosclerosis of the aorta. There i s no aortic aneurysm. Upper Abdomen: No focal or acute abnormality. There has been prior cholecystectomy. Osseous structures: Nothing acute. There has been prior scoliosis surgery and fusion with hardware in place. There is no rib fracture or compression fracture. Surrounding soft tissues including the thyroid gland are normal. No supraclavicular or axillary adeno libia. IMPRESSION: 1. No acute abnormality. 2. Prior scoliosis surgery and cholecystectomy. 3. Mild atherosclerosis. 4. Minimal right basilar atelectasis.
--- NOTE | 2017-11-05 16:46 | CT ---
EXAM: Noncontrast CT of the lumbar spine HISTORY: Fall COMPARISON: 09/19/2017 TECHNIQUE: Noncontrast CT of the lumbar spine FINDINGS: Thoracolumbar levoscoliosis is again seen. Operative changes of thoracolumbar fixation are partially imaged and extending inferiorly to the level of L4. An intrathecal catheter is seen with tip at the l evel of L1. A rudimentary S1-S2 disc is present. S1 was not completely imaged. No acute lumbar spine fracture is identified. There is reidentification of bilateral L5 spondylolysis. There is 3 mm of anterior listhesis at L5-S1, similar to the previous exam. No other listhesis is seen. The lumbar ve rtebral bodies are normal in height. There is mild disc height loss at L5-S1 with vacuum phenomenon. Atherosclerotic calcifications are seen. Streak artifacts limit evaluation of the spinal canal neural foramina. T12-L1: No disc bulge. No foraminal or spinal canal stenosis. L1-2: No definite disc bulge. No foraminal or spinal canal stenosis. L2-L3: No definite disc bulge. No definite foraminal or spinal canal stenosis. L3-4: No obvious disc bulge with limited evaluation. No obvious left foraminal stenosis. Right for aminal stenosis and spinal canal stenosis cannot excluded. L4-5: Limited evaluation with a diffuse disc bulge. Bilateral facet arthropathy and ligamentum flav um thickening. Moderate to severe right foraminal stenosis and limited evaluation of the left neural foramen with probable stenosis. Suspected at least moderate spinal canal stenosis. L5-S1: Diffuse disc osteophyte complex. Facet arthropathy. Mild to moderate right and moderate to severe left foraminal stenosis. No spinal canal stenosis. IMPRESSION: No evidence of acute osseous injury to the lumbar spine. Thoracolumbar scoliosis status post posterior fixation. Bilateral L5 spondylolysis with grade 1 anterolisthesis at L5-S1, similar to the previous exam. Mild L5-S1 degenerative disc disease. Suspected at least moderate spinal canal stenosis at L4-L5.. Multilevel foraminal stenosis as descri bed above.
--- NOTE | 2017-11-05 16:47 | CT ---
EXAM: CT thoracic spine without contrast TECHNIQUE: Helical CT of the thoracic spine was performed without contrast with coronal and sagittal reconstructions COMPARISON: Chest CT from today HISTORY: Trauma FINDINGS: There is no acute fracture or dislocation or subluxation. There is a mild S-shaped scoliosi s. There has been prior scoliosis surgery with fusion and hardware in place. There is no evidence f or hardware failure or loosening or fracture. There is no compression fracture. There is no bony ef facement of the canal. The lamina and facets are intact. There is no transverse or spinous process fracture. There are no rib fractures seen. There is no pneumothorax in the visualized lung ordaz. Visualized soft tissues show no acute abnormality. There is some minimal right basilar atelectasis. There is some mild degenerative change of the thoracic spine. IMPRESSION: 1. No acute fracture or subluxation. 2. Prior scoliosis surgery in the lower thoracic spine. 3. Mild S-shaped scoliosis.
--- NOTE | 2017-11-05 16:49 | CT ---
EXAM: Noncontrast CT of the pelvis HISTORY: Fall COMPARISON: 09/19/2017 TECHNIQUE: Noncontrast CT of the pelvis FINDINGS: Operative changes of bone graft harvesting of the right ilium are again seen. A rudimentary S1-S2 dis c is seen. There is a nondisplaced fracture involving the anterior cortex of the S4 body. There is m ild presacral hematoma measuring up to 1.3 cm in thickness. No other fracture or dislocation is iden tified. Operative and degenerative changes of the lumbar spine are partially seen. Operative change of the abdomen are identified. There is a small fat-containing umbilical hernia. Small left lower quadrant ventral abdominal wall fat-containing hernia. Atherosclerotic calcifications are present. T here is mild subcutaneous gas of the left lower posterolateral flank. IMPRESSION: Nondisplaced fracture of the S4 body. Mild presacral hematoma measuring up to 1.3 cm in AP thickness. No other acute osseous abnormality identified. Mild subcutaneous gas of the left lower posterolateral flank which could be related to medication inj ection. Clinical correlation recommended.
--- NOTE | 2017-11-05 17:00 | ED.PDOC ---
General ED Provider: Dr. JOHN MAYS-ER Chief Complaint: Fall Stated Complaint: i fell last night--my butt bone hurts Time Seen by Physician: 15:20 Mode of Arrival: Wheelchair Information Source: Patient Exam Limitations: No limitations Primary Care Provider: UMA ALICIA Nursing and Triage Documentation Reviewed and Agree: Yes Reviewed sepsis parameters & appropriate labs ordered?: Yes System Inflammatory Response Syndrome: Not Applicable Sepsis Protocol: For patient's 13 years and over: Temp is 96.8 and below OR 101 and greater Pulse >90 BPM Resp >20/minute Acutely Altered Mental Status Are patient's symptoms suggestive of a new infection, such as: -Pneumonia -Skin, Soft Tissue -Endocarditis -UTI -Bone, Joint Infection -Implantable Device -Acute Abdominal Infection -Wound Infection -Meningitis -Blood Stream Catheter Infection -Unknown Musculoskeletal Complaint Exam - Back Pain Complaint/Exam Mechanism of Injury: Reports: Trauma Onset/Duration: 18 hrs Symptoms Are: Still present Timing: Constant Initial Severity: Mild Current Severity: Moderate Location: Reports: Diffuse Character: Reports: Dull, Aching, Stiffness Aggravating: Reports: Movements, Lifting, Bending, Walking Alleviating: Reports: None Associated Signs and Symptoms: Denies: Swelling, Redness, Bruising, Fever, Weakness, Numbness, Tingling, Abdominal pain, Flank pain, Bladder incontinence, Bowel incontinence, Weight loss, Pain with weight bearing Related History: Reports: Previous back injury TAD Risk Factors: Reports: None AAA Risk Factors: Reports: None Cauda Equina Risk Factors: Reports: None Epidural Abcess Risk Factors: Reports: None Related Surgical History: Reports: None Focal Tenderness: Yes Paraspinal Muscle Tenderness: Yes Paraspinal Muscle Spasm: No Scoliosis: No Lordosis: No Kyphosis: No SLR Test: Right Negative, Left Negative Hip Motion Testing Pain: Right Negative, Left Negative Focal Weakness: Present: None Focal Sensory Loss: Present: None Gait: Present: Normal Differential Diagnoses: Sprain Review of Systems - Review Of Systems Constitutional: Reports: No symptoms Eyes: Reports: No symptoms Ears, Nose, Mouth, Throat: Reports: No symptoms Respiratory: Reports: No symptoms Cardiac: Reports: No symptoms GI: Reports: No symptoms : Reports: No symptoms Musculoskeletal: Reports: Back pain, Muscle pain Skin: Reports: No symptoms Neurological: Reports: No symptoms Endocrine: Reports: No symptoms Hematologic/Lymphatic: Reports: No symptoms All Other Systems: Reviewed and Negative Past Medical History - Past Medical History Previously Healthy: Yes Endocrine: Reports: None Cardiovascular: Reports: None Respiratory: Reports: None Hematological: Reports: None Gastrointestinal: Reports: None Genitourinary: Reports: None Neuro/Psych: Reports: None Musculoskeletal: Reports: None Cancer: Reports: None Last Menstrual Period: finished - Surgical History General Surgical History: Reports: None - Family History Family History: Reports: None - Social History Smoking Status: Current some day smoker Hx Substance Use: No Alcohol Screening: None Lives: With family Physical Exam - Physical Exam Appearance: Well-appearing Pain Distress: Mild Eyes: FLORINA, EOMI, Conjunctiva clear ENT: Ears normal, Nose normal, Oropharynx normal Neck: Supple Respiratory: Airway patent, Breath sounds clear, Breath sounds equal, Respirations nonlabored Cardiovascular: RRR GI/: Soft, Nontender, No masses, Bowel sounds normal, No Organomegaly Musculoskeletal: Limited ROM Skin: Warm, Dry, Normal color Neurological: Sensation intact, Motor intact, Reflexes intact, Cranial nerves intact, Alert, Oriented Psychiatric: Affect appropriate, Mood appropriate Interpretation - Radiology Interpretation Radiology Interpretation By: Radiologist Radiology Results: Positive Exam Interpreted: CT Scan ("nondisplaced sacral fx") Re-Evaluation - Re-Evaluation Time of Re-Evaluation: 17:02 Status: Improved Vital Signs Stable: Yes Pain Level: 1 Appearance: NAD Lungs: Clear Skin: Warm and Dry Neuro: Alert and Oriented X3 CV: RRR Critical Care Note - Critical Care Note Total Time (mins): 0 Course - Course Orders, Labs, Meds: Orders Category Date Time Status Hydromorphone HCl/Pf [Dilaudid 2 mg/ml Syringe] MEDS 11/05/17 15:32 Discontinued 2 mg IM ONCE STA Promethazine HCl [Phenergan 25 mg/ml Vial] MEDS 11/05/17 15:32 Discontinued 25 mg IM ONCE STA CT CERVICAL SPINE W/O CONTRAST Stat RADS 11/05/17 15:[address] CHEST W/O CONTRAST Stat RADS 11/05/17 15:[address] HEAD W/O CONTRAST Stat RADS 11/05/17 15:[address] LUMBAR SPINE W/O CONTRAST Stat RADS 11/05/17 15:[address] PELVIS W/O CONTRAST Stat RADS 11/05/17 15:[address] THORACIC SPINE W/O CONTRAST Stat RADS 11/05/17 15:31 Completed Medications Discontinued Medications Generic Name Dose Route Start Last Admin Trade Name Jaxson PRN Reason Stop Dose Admin Hydromorphone HCl 2 mg 11/05/17 15:32 11/05/17 15:45 Dilaudid 2 Mg/Ml Syringe IM 11/05/17 15:33 2 mg ONCE STA Administration Promethazine HCl 25 mg 11/05/17 15:32 11/05/17 15:47 Phenergan 25 Mg/Ml Vial IM 11/05/17 15:33 25 mg ONCE STA Administration she refused consideration for admission) Vital Signs: Temp Pulse Resp BP Pulse Ox 11/05/17 15:18 98.5 F 78 24 109/74 93 L Departure - Departure Time of Disposition: 17:02 Disposition: HOME SELF-CARE Discharge Problem: Sacral fracture, closed Qualifiers: Encounter type: initial encounter Zone of sacrum fracture: unspecified portion of sacrum Qualified Code(s): S32.10XA - Unspecified fracture of sacrum, initial encounter for closed fracture Instructions: Sacral Fracture (ED) Condition: Good Pt referred to PMD for follow-up: Yes Additional Instructions: f/u with your pcp right away Allergies/Adverse Reactions: Allergies erythromycin base Allergy (Severe, Verified 11/05/17 15:33) Mouth and throat crowley and swells Patient to notify drugstore Home Medications: Ambulatory Orders Albuterol Sulfate [Proair Hfa] 8.5 gm IH TID PRN PRN 02/24/17 Baclofen 10 mg PO TID 02/24/17 Budesonide/Formoterol Fumarate [Symbicort 160-4.5 Mcg Inhaler] 10.2 gm IH BID Celecoxib [Celebrex] 200 mg PO BEDTIME 02/24/17 Clobetasol Propionate/Emoll [Clobetasol Emollient 0.05% Crm] 60 gm TP BID PRN Ergocalciferol (Vitamin D2) [Vitamin D2] 50,000 unit PO WEEKLY 02/24/17 Ixekizumab [Taltz Syringe] 80 mg SQ MONTHLY 02/24/17 Prednisone 5 mg PO BID 02/24/17 Topiramate [Topamax] 200 mg PO BID 02/24/17 Vistaril 25 mg PO 1-2 caps every 6 hrs PRN 02/24/17 Zolpidem Tartrate [Ambien] 10 mg PO BEDTIME 02/24/17 Oxycodone-Acetaminophen 10-325 [Percocet 10-325] 1 tab PO QID PRN 09/18/17 Sumatriptan Succinate [Imitrex] 25 mg PO ONCE PRN 09/18/17 Disposition Discussed With: Patient
== END 2017-11-05 17:10 | disposition home or self-care (01) ==
LOC: ED 15:17
DX: S32.10XA Unspecified fracture of sacrum, initial encounter for closed fracture (principal); W19.XXXA Unspecified fall, initial encounter; F17.210 Nicotine dependence, cigarettes, uncomplicated
CPT/HCPCS: 96372; 99283

== ENCOUNTER 2017-12-26 16:04 | Outpatient (CLI) | payer OTHER | END 2017-12-26 16:05 | disposition home or self-care (01) | LOC: LAB 16:04 | PROVIDERS: ATTEND Emergency Medicine | DX: R68.89 Other general symptoms and signs (principal); J06.9 Acute upper respiratory infection, unspecified | CPT/HCPCS: 87804 ==

== ENCOUNTER 2018-01-01 12:11 | Outpatient (CLI) ==
--- NOTE | 2018-01-01 13:47 | DI ---
EXAM: Chest two view, frontal and lateral views. HISTORY: Acute respiratory infection. COMPARISON: 11/05/2017. FINDINGS: The heart size is normal. There is no pulmonary vascular congestion. The lungs are clear . No pleural effusion or pneumothorax is seen. No acute osseous abnormality identified. Mild compr ession deformity of a mid thoracic vertebral body noted. Posterior stabilization rods seen in the th oracolumbar spine. Cholecystectomy clips are present. Since the prior study, there has been no signi ficant interval change. IMPRESSION: No acute cardiopulmonary process.
== END 2018-01-01 12:12 | disposition home or self-care (01) ==
LOC: RAD 12:11
PROVIDERS: ATTEND Emergency Medicine
DX: J06.9 Acute upper respiratory infection, unspecified (principal)

== ENCOUNTER 2018-04-06 10:13 | Outpatient (CLI) ==
[2018-04-06] MEDS ORDERED: PROLIA SUBCUT STA (10:26)
[2018-04-06 10:30] VITALS: BP 124/76; TEMP 98.1
== END 2018-04-06 10:35 | disposition home or self-care (01) ==
LOC: OPMED 10:13
PROVIDERS: ATTEND Nurse Practitioner Family
DX: M81.0 Age-related osteoporosis without current pathological fracture (principal)
CPT/HCPCS: 96372

== ENCOUNTER 2018-06-08 11:34 | Outpatient (CLI) ==
--- NOTE | 2018-06-08 13:03 | DI ---
Exam: Two views of the right tibia-fibula. Comparison: None available. Reason for exam: Cellulitis of lower leg. FINDINGS: No acute fracture or malalignment. The cortices are intact. No unexplained fluid collecti ons or air within the soft tissues. Impression: No acute fracture or malalignment in the right tibia-fibula.
== END 2018-06-08 11:35 | disposition home or self-care (01) ==
LOC: RAD 11:34
PROVIDERS: ATTEND Emergency Medicine
DX: L03.115 Cellulitis of right lower limb (principal)
CPT/HCPCS: 36415; 85025; 85651

== ENCOUNTER 2018-08-31 11:00 | Outpatient (RCR) ==
--- NOTE | 2018-08-09 10:01 | RS.OPPTEV2 ---
Date of Note: 08/08/18 Visit #: 1 Date of Evaluation: 08/08/18 Payer Source: MEDICARE Surgery Performed?: Yes (L shld arthroscopy) Date of Procedure: 07/18/18 Treatment Diagnosis: L shld pain s/p arthroscopy on 07/18/18 History of Condition/Mechanism of Injury:: pt underwent L shld arthroscopy on 10/23 underwent L shoulder distal clavical excision, biceps tenotomy, artroscopic subacromial decompression, arthroscopic debridement of partial thickness articular side supraspinatus tendon tear. Prior Level of Function.....Patient was independent with: ADL's, Self Care, Caregiving, Ambulation/Mobility, Community Integration/Access Functional Limitations: Sleep, Self Care, ADL's, Reaching, Pushing, Pulling, Lifting, Carrying, Community Access/Integration Current Subjective/complaints:: pt reports this is the most painful surgery she has been through. She states that MD told her she could remove the sling and he did not mention any restrictions. She states she has been unable to use LUE due to pain. 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 Treatment Side (optional): Left *Precautions: n/a Medical History Medical History: Arthritis Medical History Comments:: Medical Disability for low back pain, fibromyalgia, anxiety Surgical History: Cholecystectomy, Hysterectomy Surgical History Comments:: Surgery for Scoliosis 1983, Carpal Tunnel surgery bilateral 2000, Lumbar shunt 2001, Lumbar shunt revision X 2 2001. Shld manipulation R 2017 Smoking Status: Current every day smoker Hx Home Medications: Percocet, Celebrex, Baclofen, Topamax, Imitrex, Prednisone , Symbicort, Ambien, Stool softner, dupixent, Patient's Goals: Decrease pain and be able to get back to normal activities Pain Assessment - Pain Description Pain Location: L shld Pain Description: Sharp, Aching, Chronic Current Pain Intensity: 7/10 Other Comments regarding Pain:: pt in tears with PT eval Functional Outcome Measure UE Functional Index: 13 (84%) - G Codes & Severity Modifier G Codes & Modifier: carrying moving and handling objects: current CM. carrying moving and handling objects: goal CL Source of G Code score: UE functional index Observation - Observation Posture: Forward Head, Rounded Shoulders, Increased Thoracic Kyphosis, Decreased Lumbar Lordosis, Decreased Cervical Lordosis Handedness: Left Gait - Gait Pattern General Gait Pattern Observation: No Deviations/Normal General Range of Motion: RUE WFL's. BLE WFL's Muscle Strength: RUE 5/5. BLE 5/5 Shoulder ROM: Right WFL's Shoulder Muscle Strength: Right WFL's - Left Shoulder ROM Left Shoulder Flexion: 98 Left Shoulder Abduction: 110 Left Shoulder ROM Limitations: Soft Tissue Tightness, Muscle Weakness, Pain Comments: IR/ER WFL's with PROM. L elbow and wrist WFL's - Left Shoulder Strength Left Shoulder Flexion: 2+ Poor+ Left Shoulder Extension: 2+ Poor+ Left Shoulder Abduction: 2+ Poor+ Left Shoulder Adduction: 3 Fair Left Shoulder External Rotation: 2+ Poor+ Left Shoulder Internal Rotation: 2+ Poor+ Comments: elbow flex/ext 3/5, Palpation Palpation Findings: Tenderness, Muscle Guarding Comments:: pt with tenderness to ant shld. muscle guarding and trigger points noted in L upper trap and well as medial border of scapula Sensation - Sensation Right Upper Extremity: Intact/Normal Left Upper Extremity: Intact/Normal Right Lower Extremity: Intact/Normal Left Lower Extremity: Intact/Normal Balance - Sitting Balance Static Sitting Balance: Normal Dynamic Sitting Balance: Normal - Standing Balance Static Standing Balance: Normal Dynamic Standing Balance: Normal - Heat/Cryotherapy Treatment: Cryotherapy Comments:: L shld Interventions - Exercise/Activities/Manual Therapy Exercises/Activities: pt performed upper trap stretch and received P to AAROM L shld. pt instructed on pendulum ex as well as scapular retraction. pt unable to tolerate further ex this visit due to pain. Manual Therapy: NA HOME EXERCISE PROGRAM: pt given written HEP including pendulum ex, upper trap stretch, scapular retraction, and table stretch - Charges Timed Code Treatment Minutes: 51 Total Treatment Time: 62 Procedures billed for this date of service:: eval low, cold pack EVALUATION COMPLEXITY LEVEL EVALUATION COMPLEXITY LEVEL: HISTORY: Low (OA), EXAM OF BODY SYSTEMS: Medium ( pain, ROM, strength, muscle guarding), CLINICAL PRESENTATION: Low, CLINICAL DECISION MAKING: Low Assessment Assessment: pt presents s/p L shld arthroscopy with significant pain this visit. pt with limited strength, ROM as well as pain. pt with muscle guarding and trigger points to L upper trap and medial scapula. Patient Education: Home Exercise Program, Education of Plan of Care Rehab Potential: Good Short Term Goals Goal #1: pt independent with HEP Goal to be met by: 08/22/18 Goal #2: Left shoulder flexion 100 abd 120 Goal to be met by: 08/22/18 Goal #3: Pain at rest <7/10. Goal to be met by: 08/22/18 Penitentiary Goals Goal #1: Improve L shld AROM WFL's with decreased pain Goal to be met by: 09/05/18 Goal #2: Score on UE functional index improved to <78% impairment. Goal to be met by: 09/05/18 Goal #3: pt report increased ability to use LUE to perform normal daily activities Goal to be met by: 09/05/18 Goal #4: Left shoulder pain <4/10 with activity. Goal to be met by: 09/05/18 Plan - Treatment to be Provided Procedures: Therapeutic Exercises, Therapeutic Activity, Manual Therapy, Patient Education Modalities: Electrical Stimulation, Ultrasound/Phonophoresis, Cryotherapy, Hot Packs - Treatment Plan Frequency: 2 X week Duration: 4 weeks ORDER # VISITS AND/OR THROUGH DATE: 09/05/18 - Treatment Code (1) Left shoulder pain Code(s): M25.512 - PAIN IN LEFT SHOULDER Qualifiers: Chronicity: chronic Qualified Code(s): M25.512 - Pain in left shoulder; G89.29 - Other chronic pain (2) Stiffness of left shoulder joint Code(s): M25.612 - STIFFNESS OF LEFT SHOULDER, NOT ELSEWHERE CLASSIFIED (3) Osteoarthritis Code(s): M19.90 - UNSPECIFIED OSTEOARTHRITIS, UNSPECIFIED SITE Qualifiers: Osteoarthritis location: shoulder Osteoarthritis type: primary Laterality : left Qualified Code(s): M19.012 - Primary osteoarthritis, left shoulder (4) H/O arthroscopy of shoulder Code(s): Z98.890 - OTHER SPECIFIED POSTPROCEDURAL STATES
--- NOTE | 2018-08-10 12:57 | RS.OPPTDN ---
Subjective Date of Note: 08/10/18 Visit #: 2 Date of Evaluation: 08/08/18 Payer Source: MEDICARE Treatment Diagnosis: L shld pain s/p arthroscopy on 07/18/18 Current Subjective/complaints:: Patient says that she still has significant pain to the L shoulder. States pendulum exercise increases her pain. She says that she used the homemade ice pack for her shoulder and felt relief, but afterwards pain increased. She c/o lack of sleep and inability to keep her granddaughter, but will resume next . She says she is able to drive, but does not use the L UE. She is taking pain medication that helps minimally. *Precautions: n/a Pain Assessment - Pain Description Pain Location: L shoulder extending to L mid upper arm - Heat/Cryotherapy Treatment: Cryotherapy (15 mins to L shoulder and upper arm in sitting after therex) Interventions - Exercise/Activities/Manual Therapy Exercises/Activities: Patient receives PROM to the L elbow for flex/ext and sup/ pron, shoulder IR/ER/flexion/abd limited ranges ~60 degree tyrese only for the latter 2 directions. She performs shoulder shrugs in sitting after ice. Patient received continual education on her diagnosis, joint mechanics, and HeP. Total minutes of Exercise: 30 Manual Therapy: NA HOME EXERCISE PROGRAM: pt given written HEP including pendulum ex, upper trap stretch, scapular retraction, and table stretch - Charges Timed Code Treatment Minutes: 30 Total Treatment Time: 45 Procedures billed for this date of service:: cp, ex2 Assessment: Patient experiencing moderate to severe L shoulder pain that extends to the mid upper arm. She notes pendulum increased her pain and unable to sleep due to symptoms. She has been performing HEP as able and using ice, which initially relieved pain then returned immediately after ice removed. She tyrese PROM with rests and switching positions of range, but should continue to demo increased functional range and strength. She demo habit of holding L UE at her chest to protect from others coming in contact with it. Reminded her to hold arm down at side and maybe carrying something light weight (keys) in her hand to cue her to avoid it in flexed position. Patient Education: Education of diagnosis, Body/Joint mechanics, Home Exercise Program, Education of Plan of Care Patient demonstrates compliance with HEP?: Yes (as able) Short Term Goals Goal #1: pt independent with HEP Goal to be met by: 08/22/18 Progress towards Goal:: Progressing Goal #2: Left shoulder flexion 100 abd 120 Goal to be met by: 08/22/18 Goal #3: Pain at rest <7/10. Goal to be met by: 08/22/18 Goal #4: Left shoulder PROM WFL's. Goal to be met by: 08/18/17 Progress towards Goal:: Met Half-Way Goals Goal #1: Improve L shld AROM WFL's with decreased pain Goal to be met by: 09/05/18 Goal #2: Score on UE functional index improved to <78% impairment. Goal to be met by: 09/05/18 Goal #3: pt report increased ability to use LUE to perform normal daily activities Goal to be met by: 09/05/18 Goal #4: Left shoulder pain <4/10 with activity. Goal to be met by: 09/05/18 Plan PLAN OF CARE EXPIRES ON:: 09/05/18 ORDER # VISITS AND/OR THROUGH DATE: 09/05/18 PLAN: Continue BIW for ROM to the L shoulder to improve function/strength
--- NOTE | 2018-08-14 12:02 | RS.OPPTDN ---
Subjective Date of Note: 08/14/18 Visit #: 3 Date of Evaluation: 08/08/18 Payer Source: MEDICARE Treatment Diagnosis: L shld pain s/p arthroscopy on 07/18/18 Current Subjective/complaints:: Patient says she is able to sleep better now, but anticipates watching her granddaughter tomorrow. She says she is unsure how she will watch her, but says she can use mostly the R UE. She says she has been working on her HEP often at home and feels she has more mobility. Reports when she tried to take a drink earlier with the L arm, she heard a pop and did cause pain. She continues to use ice also. *Precautions: n/a Pain Assessment - Pain Description Pain Location: Ache to the L UE down to the elbow - Heat/Cryotherapy Treatment: Cryotherapy (15 mins to the L shoulder and upper arm in supine after therex) Interventions - Exercise/Activities/Manual Therapy Exercises/Activities: Patient receives PROM to the L elbow for flex/ext and sup/ pron, shoulder IR/ER/flexion to 120 degrees/abd now to 100 degrees. Manual isometrics for IR/ER/ext. Active elbow flex/ext, sup/pron shoulder flexion with elbow flexed all x 5. She performs shoulder shrugs in sitting after ice. Patient received continual education on her diagnosis, joint mechanics, and HeP. Total minutes of Exercise: 30 Manual Therapy: NA HOME EXERCISE PROGRAM: pt given written HEP including pendulum ex, upper trap stretch, scapular retraction, and table stretch - Charges Timed Code Treatment Minutes: 30 Total Treatment Time: 45 Procedures billed for this date of service:: cp, ex2 Assessment: Patient demo less guarding today allowing improved ROM for flexion to 120 degrees and ABD to 100 on average (Passive). Active : 100 degrees and ABD is 93 stopping due to pain increasing. She is nervous about caring for her grandchild tomorrow, but plans to compensate using the R UE. Patient Education: Education of diagnosis, Body/Joint mechanics, Home Exercise Program Patient demonstrates compliance with HEP?: Yes Short Term Goals Goal #1: pt independent with HEP Goal to be met by: 08/22/18 Progress towards Goal:: Progressing Goal #2: Left shoulder flexion 100 abd 120 Goal to be met by: 08/22/18 Progress towards Goal:: Progressing Goal #3: Pain at rest <7/10. Goal to be met by: 08/22/18 Goal #4: Left shoulder PROM WFL's. Goal to be met by: 08/18/17 Progress towards Goal:: Met Youth Care Specialist Goals Goal #1: Improve L shld AROM WFL's with decreased pain Goal to be met by: 09/05/18 Goal #2: Score on UE functional index improved to <78% impairment. Goal to be met by: 09/05/18 Goal #3: pt report increased ability to use LUE to perform normal daily activities Goal to be met by: 09/05/18 Goal #4: Left shoulder pain <4/10 with activity. Goal to be met by: 09/05/18 Plan PLAN OF CARE EXPIRES ON:: 09/05/18 ORDER # VISITS AND/OR THROUGH DATE: 09/05/18 PLAN: Continue BIW for progressive therex to restore ROM and function to the L UE.
--- NOTE | 2018-08-21 09:40 | RS.CXNS ---
Date of scheduled appointment: 08/21/18 Type: Cancel Reason for Cancel/NS: sick
--- NOTE | 2018-08-21 09:53 | RS.OPPTDN ---
Subjective Date of Note: 08/17/18 Visit #: 4 Number of visits approved by Insurance: 2x4, [id number] Date of Evaluation: 08/08/18 Payer Source: MEDICARE Treatment Diagnosis: L shld pain s/p arthroscopy on 07/18/18 Current Subjective/complaints:: Patient says she had a hard time taking care of her granddaughter yesterday. She says her mother helps a little, but primarily it is Consuelo that takes care of the 8month old. She *Precautions: n/a Interventions - Exercise/Activities/Manual Therapy Exercises/Activities: Patient receives PROM to the L elbow for flex/ext and sup/ pron, shoulder IR/ER/flexion increasing to 150 degrees/abd now to 120 degrees. Manual isometrics for IR/ER/ext. Active elbow flex/ext, sup/pron shoulder flexion with elbow flexed all x 5. Gentle isometrics for IR/ER and ABD x 5. She performs shoulder shrugs in sitting after ice. Patient received continual education on her diagnosis, joint mechanics, and HeP. Total minutes of Exercise: 33 Manual Therapy: NA HOME EXERCISE PROGRAM: pt given written HEP including pendulum ex, upper trap stretch, scapular retraction, and table stretch - Charges Timed Code Treatment Minutes: 33 Total Treatment Time: 33 Procedures billed for this date of service:: ex2 Assessment: Patient presents with 8mo old granddaughter and mother to appt. She is limited on some PROM because she is trying to care for her grandbaby and keep within sight of her during therex session. Baby becomes upset and she discontinued session short. However, she is able to tyrese significant improvement with ROM passively. Patient Education: Education of diagnosis, Body/Joint mechanics, Home Exercise Program, Education of Plan of Care Patient demonstrates compliance with HEP?: Yes Short Term Goals Goal #1: pt independent with HEP Goal to be met by: 08/22/18 Progress towards Goal:: Progressing Goal #2: Left shoulder flexion 100 abd 120 Goal to be met by: 08/22/18 Progress towards Goal:: Progressing Goal #3: Pain at rest <7/10. Goal to be met by: 08/22/18 Progress towards Goal:: Progressing Goal #4: Left shoulder PROM WFL's. Goal to be met by: 08/18/17 Progress towards Goal:: Met Electronic Assembler Goals Goal #1: Improve L shld AROM WFL's with decreased pain Goal to be met by: 09/05/18 Goal #2: Score on UE functional index improved to <78% impairment. Goal to be met by: 09/05/18 Goal #3: pt report increased ability to use LUE to perform normal daily activities Goal to be met by: 09/05/18 Goal #4: Left shoulder pain <4/10 with activity. Goal to be met by: 09/05/18 Plan Dates of Electronic Assembler Goals: 09/05/18 Expiration date of current Insurance Approval:: 09/05/18 PLAN: Patient to continue for progressive therex
--- NOTE | 2018-08-22 10:09 | RS.CXNS ---
Date of scheduled appointment: 08/22/18 Type: Cancel Reason for Cancel/NS: Still sick. Hoping to make her next appt.
--- NOTE | 2018-08-24 12:18 | RS.OPPTDN ---
Subjective Date of Note: 08/24/18 Visit #: 4 Number of visits approved by Insurance: 2x4 LT09/05/18 Date of Evaluation: 08/08/18 Payer Source: MEDICARE Treatment Diagnosis: L shld pain s/p arthroscopy on 07/18/18 Current Subjective/complaints:: Patient says she still isn't feeling well, but knew she had to come to therapy. She reports she is trying to be cautious with picking up her granddaughter and use the R UE. She says she is able to brush her hair now and better on the L UE. She is working on HEP. *Precautions: n/a Pain Assessment - Pain Description Pain Location: L shoulder Interventions - Exercise/Activities/Manual Therapy Exercises/Activities: Patient receives continued PROM to the L elbow for flex/ ext and sup/pron, shoulder IR/ER/flexion increasing to 150-160 degrees/abd now to WFL degrees. Manual isometrics for IR/ER/ext. Active elbow flex/ext, sup/ pron shoulder flexion with elbow flexed all x 5. Gentle isometrics for IR/ER and ABD x 5. Isometrics for biceps/triceps, shoulder extension. 1# dumbell for wrist and elbow x 10. She sits at EOB for scap retraction with red tband x 12, ROM arc for abd/add x 7. Total minutes of Exercise: 38 Manual Therapy: NA HOME EXERCISE PROGRAM: pt given written HEP including pendulum ex, upper trap stretch, scapular retraction, and table stretch - Charges Timed Code Treatment Minutes: 38 Total Treatment Time: 38 Procedures billed for this date of service:: ex3 Assessment: Patient demo improved PROM and AROM to now WFL. She demo improved tyrese to all therex with more control with eccentric contractions. Improved functional tasks such as brushing hair. Patient Education: Home Safety Patient demonstrates compliance with HEP?: Yes Short Term Goals Goal #1: pt independent with HEP Goal to be met by: 08/22/18 Progress towards Goal:: Progressing Goal #2: Left shoulder flexion 100 abd 120 Goal to be met by: 08/22/18 Progress towards Goal:: Partially Met Goal #3: Pain at rest <7/10. Goal to be met by: 08/22/18 Progress towards Goal:: Progressing Goal #4: Left shoulder PROM WFL's. Goal to be met by: 08/18/17 Progress towards Goal:: Met Professor Of Literature Goals Goal #1: Improve L shld AROM WFL's with decreased pain Goal to be met by: 09/05/18 Progress towards goal: Progressing Goal #2: Score on UE functional index improved to <78% impairment. Goal to be met by: 09/05/18 Goal #3: pt report increased ability to use LUE to perform normal daily activities Goal to be met by: 09/05/18 Goal #4: Left shoulder pain <4/10 with activity. Goal to be met by: 09/05/18 Plan Dates of Intermediate Goals: 09/05/18 Expiration date of current Insurance Approval:: 09/05/18, 4 sessions remaining PLAN: Continue for progression of exercise to L UE
--- NOTE | 2018-08-28 14:57 | RS.OPPTDN ---
Subjective Date of Note: 08/28/18 Visit #: 6 Number of visits approved by Insurance: 8 total through order Date of Evaluation: 08/08/18 Payer Source: MEDICARE Treatment Diagnosis: L shld pain s/p arthroscopy on 07/18/18 Current Subjective/complaints:: Patient says she has been hurting more since taking care of granddaughter. She says she has difficulty lifting her. She says she ices often and performs HEP to keep her arm flexible. *Precautions: n/a Interventions - Exercise/Activities/Manual Therapy Exercises/Activities: Patient receives continued PROM to the L elbow for flex/ ext and sup/pron, shoulder IR/ER/flexion increasing to WFL degrees/abd. Manual isometrics for IR/ER/ext/flex 2x5. 1# dumbell elbow flex/ext, sup/pron shoulder flexion with elbow flexed all 2x 5. She sits at EOB for scap retraction with red tband x 12, 1# wand for bilateral shoulder flexion x 10. ROM arc for abd/add x 7. Total minutes of Exercise: 34 Manual Therapy: NA HOME EXERCISE PROGRAM: pt given written HEP including pendulum ex, upper trap stretch, scapular retraction, and table stretch - Charges Timed Code Treatment Minutes: 34 Total Treatment Time: 34 Procedures billed for this date of service:: ex2 Assessment: Patient demo improved PROM to WNL all directions in supine and sitting. FLEX is WFL actively in sitting as well. She is consistent with HEP, but remains with elevated pain and difficulty tyrese caring for her granddaughter. When asked, patient reveals she is the only one to care for her at this time. Patient Education: Home Exercise Program Patient demonstrates compliance with HEP?: Yes Short Term Goals Goal #1: pt independent with HEP Goal to be met by: 08/22/18 Progress towards Goal:: Progressing Goal #2: Left shoulder flexion 100 abd 120 Goal to be met by: 08/22/18 Progress towards Goal:: Met Comments:: actively Goal #3: Pain at rest <7/10. Goal to be met by: 08/22/18 Progress towards Goal:: Progressing Goal #4: Left shoulder PROM WFL's. Goal to be met by: 08/18/17 Progress towards Goal:: Met Medical Facilities Section Director Goals Goal #1: Improve L shld AROM WFL's with decreased pain Goal to be met by: 09/05/18 Progress towards goal: Progressing Goal #2: Score on UE functional index improved to <78% impairment. Goal to be met by: 09/05/18 Goal #3: pt report increased ability to use LUE to perform normal daily activities Goal to be met by: 09/05/18 Goal #4: Left shoulder pain <4/10 with activity. Goal to be met by: 09/05/18 Plan Dates of Medical Facilities Section Director Goals: 09/05/18 Expiration date of current Insurance Approval:: 09/05/18 PLAN: Continue progressive therex
--- NOTE | 2018-08-31 14:58 | RS.OPPTDN ---
Subjective Date of Note: 08/31/18 Visit #: 7 Number of visits approved by Insurance: 8 Date of Evaluation: 08/08/18 Payer Source: MEDICARE Treatment Diagnosis: L shld pain s/p arthroscopy on 07/18/18 Current Subjective/complaints:: Patient says she is working her arm everyday with caring for the granddaughter. She says her shoulder continues to hurt, but does have more mobility. She states that it is still difficult for her to reach across her body, but all else seems easier. *Precautions: n/a Pain Assessment - Pain Description Pain Location: L shoulder - Heat/Cryotherapy Treatment: Cryotherapy (15 mins to the L shoulder after therex in supine) Interventions - Exercise/Activities/Manual Therapy Exercises/Activities: Patient receives continued PROM to the L shoulder IR/ER/ flexion increasing to 160 degrees flexion/abd WFL. Manual isometrics for IR/ER/ ext/flex 2x5. Progressed to 2# dumbell elbow flex/ext, sup/pron all x 12. Active reaching and punches no weight x 10. 2# wand for chest press x 10, 1# for bilateral shoulder flexion x 10. She sits at EOB for scap retraction with red tband x 12, 1# wand for bilateral shoulder flexion x 10. ROM arc for abd/ add x 8. UBE x 3 mins forward, 1 min retro. Total minutes of Exercise: 33 Manual Therapy: NA HOME EXERCISE PROGRAM: pt given written HEP including pendulum ex, upper trap stretch, scapular retraction, and table stretch - Charges Timed Code Treatment Minutes: 33 Total Treatment Time: 48 Procedures billed for this date of service:: cp, ex2 Assessment: Patient progressing with PROM and AROM to now well into WFL with the exception of IR still being limited. She remains with mod pain level, but continues to consistently work the arm with caring for her granddaughter. Patient Education: Education of diagnosis, Home Exercise Program Patient demonstrates compliance with HEP?: Yes Short Term Goals Goal #1: pt independent with HEP Goal to be met by: 08/22/18 Progress towards Goal:: Progressing Goal #2: Left shoulder flexion 100 abd 120 Goal to be met by: 08/22/18 Progress towards Goal:: Met Goal #3: Pain at rest <7/10. Goal to be met by: 08/22/18 Progress towards Goal:: Progressing Goal #4: Left shoulder PROM WFL's. Goal to be met by: 08/18/17 Progress towards Goal:: Met Global Sales Manager Goals Goal #1: Improve L shld AROM WFL's with decreased pain Goal to be met by: 09/05/18 Progress towards goal: Progressing Goal #2: Score on UE functional index improved to <78% impairment. Goal to be met by: 09/05/18 Goal #3: pt report increased ability to use LUE to perform normal daily activities Goal to be met by: 09/05/18 Goal #4: Left shoulder pain <4/10 with activity. Goal to be met by: 09/05/18 Plan Dates of Global Sales Manager Goals: 09/05/18 Expiration date of current Insurance Approval:: 09/05/18 PLAN: Continue x 1 more session per order. Reassess at next visit for further need and to complet UE Functional Index.
--- NOTE | 2018-09-04 10:18 | RS.CXNS ---
Date of scheduled appointment: 09/04/18 Type: Cancel Reason for Cancel/NS: Patient contacts us saying she has bronchitis. Informed pt her dates tomorrow. She will be returning to [facility] 09/14/18. Preparing for D/c.
== END 2018-09-05 23:59 ==
PROVIDERS: ATTEND Orthopaedic Surgery
DX: M25.512 Pain in left shoulder (principal); G89.29 Other chronic pain; M25.612 Stiffness of left shoulder, not elsewhere classified; M19.012 Primary osteoarthritis, left shoulder; Z98.890 Other specified postprocedural states

== ENCOUNTER 2018-11-09 15:36 | Outpatient (CLI) ==
[2018-01-01 12:29] VITALS: BMI 32.8
== END 2018-11-09 15:37 | disposition home or self-care (01) ==
LOC: LAB 15:36
PROVIDERS: ATTEND Nurse Practitioner Family
DX: M81.0 Age-related osteoporosis without current pathological fracture (principal); Z78.0 Asymptomatic menopausal state
CPT/HCPCS: 36415; 82306; 82310

== ENCOUNTER 2018-11-15 12:47 | Emergency (ER) ==
[2018-11-15 12:52] VITALS: BP 118/83; TEMP 99.4; BMI 31.0
[2018-11-15] MEDS ORDERED: DUONEB NEB STA (13:40)
--- NOTE | 2018-11-15 14:05 | DI ---
Exam: Two views of the chest. Comparison: 01/01/2018. Reason for exam: Cough. FINDINGS: No pneumothorax, pleural effusion, or focal consolidation. Similar appearing operative ch anges are seen in the thoracolumbar spine. The cardiac silhouette is unchanged. Impression: No acute cardiopulmonary process.
[2018-11-15] MEDS ORDERED: DECADRON 4 MG/ML SDV IM STA (14:19)
--- NOTE | 2018-11-15 14:41 | ED.PDOC ---
General ED Provider: Dr. HALLEY CONTRERAS Chief Complaint: Respiratory Complaint Stated Complaint: FLU LIKE SYMPTOMS Time Seen by Physician: 13:00 (SEEN WITH NURSING STAFF ) Mode of Arrival: Walk-In Information Source: Patient Exam Limitations: No limitations Nursing and Triage Documentation Reviewed and Agree: Yes Does patient meet sepsis criteria?: No (ONE FAMILY MEMBER WAS RSV POSTIVE MOTHER HAS THE SAME ISSUE SHE IS ALSO RSV) System Inflammatory Response Syndrome: Not Applicable Sepsis Protocol: For patient's 13 years and over: Temp is 96.8 and below OR 101 and greater Pulse >90 BPM Resp >20/minute Acutely Altered Mental Status Are patient's symptoms suggestive of a new infection, such as: -Pneumonia -Skin, Soft Tissue -Endocarditis -UTI -Bone, Joint Infection -Implantable Device -Acute Abdominal Infection -Wound Infection -Meningitis -Blood Stream Catheter Infection -Unknown Respiratory Complaint Exam - Respiratory Complaint/Exam Onset/Duration: 1 DAY Symptoms Are: Resolved Timing: Intermittent Initial Severity: Moderate Current Severity: Mild Location: Nose, Throat, Chest Character: Reports: Non-productive cough, Dry cough Aggravating: Reports: URI Alleviating: Reports: Spontaneous resolution Associated Signs and Symptoms: Reports: Chills, URI, Nasal congestion, Sore throat, Decreased oral intake. Denies: Rapid breathing, Dyspnea, Fever, Chest pain, Pleuritic chest pain, Wheezing, Hemoptysis, Dizziness, Calf pain, Calf swelling, Edema, Hoarseness, Sinus discomfort, Vomiting, Weight loss, Increased thirst, Increased appetite, Increased urination History of Healthcare-Acquired Pneumonia: No Related Surgical History: Reports: None Pulmonary Embolism Risk Factors: None Cardiac Risk Factors: Reports: None Pseudomonas Risk Factors: Reports: None Tuberculosis Risk Factors: Reports: None Status Asthmaticus Risk Factors: Reports: None Home Oxygen Use: No Recent Stress Test: No Recent Echo/LV Function: No Current Antibiotic Use: No Current Asthma Medication Use: No Respiratory Distress: None Inadequate Respiratory Effort: No Dysphagia Present: No Stridor Present: No JVD Present: No Accessory Muscle Use: No Retractions: Not Present Diminished Breath Sounds: No Sinus Tenderness: None Grunting Respirations: No Kussmaul Respirations: No Differential Diagnoses: Pneumonia, Bronchitis Quality Indicators For Pneumonia: SpO2 assessed, Vital signs, Mental status assessed Review of Systems - Review Of Systems Constitutional: Reports: Malaise Eyes: Reports: No symptoms Ears, Nose, Mouth, Throat: Reports: No symptoms Respiratory: Reports: Cough, Wheezing Cardiac: Reports: No symptoms GI: Reports: No symptoms : Reports: No symptoms Musculoskeletal: Reports: No symptoms Skin: Reports: No symptoms Neurological: Reports: No symptoms Endocrine: Reports: No symptoms Hematologic/Lymphatic: Reports: No symptoms All Other Systems: Reviewed and Negative Past Medical History - Past Medical History Previously Healthy: Yes Endocrine: Reports: None Cardiovascular: Reports: None Respiratory: Reports: None Hematological: Reports: None Gastrointestinal: Reports: None Genitourinary: Reports: None Neuro/Psych: Reports: None Musculoskeletal: Reports: None Cancer: Reports: None Last Menstrual Period: n/a - Surgical History General Surgical History: Reports: None - Family History Family History: Reports: None - Social History Smoking Status: Current some day smoker Hx Substance Use: No Alcohol Screening: None Physical Exam - Physical Exam Appearance: Well-appearing, No pain distress, Well-nourished Eyes: FLORINA, EOMI, Conjunctiva clear ENT: Ears normal, Nose normal, Oropharynx normal Respiratory: Rhonchi, Wheezes Cardiovascular: RRR, Pulses normal, No rub, No murmur GI/: Soft, Nontender, No masses, Bowel sounds normal, No Organomegaly Musculoskeletal: Normal strength, ROM intact, No edema, No calf tenderness Skin: Warm, Dry, Normal color Neurological: Sensation intact, Motor intact, Reflexes intact, Cranial nerves intact, Alert, Oriented Psychiatric: Affect appropriate, Mood appropriate Interpretation - Radiology Interpretation Radiology Interpretation By: Radiologist Radiology Results: No acute changes Re-Evaluation - Re-Evaluation Time of Re-Evaluation: 13:20 Status: Improved Vital Signs Stable: Yes Pain Level: 0 Appearance: NAD Lungs: Clear Skin: Warm and Dry Neuro: Alert and Oriented X3 CV: RRR - Re-Evaluation Time of Re-Evaluation: 14:43 Status: Improved Vital Signs Stable: Yes Pain Level: 0 Appearance: NAD Skin: Warm and Dry Neuro: Alert and Oriented X3 CV: RRR Critical Care Note - Critical Care Note Total Time (mins): 0 Course - Course Hematology/Chemistry: 11/15/18 13:35 11/15/18 13:35 Orders, Labs, Meds: Lab Review 11/15/18 11/15/18 11/15/18 13:35 13:35 13:35 WBC 9.44 RBC 5.15 Hgb 16.5 H Hct 45.0 MCV 87.4 MCH 32.0 H MCHC 36.7 H RDW Coeff of Ivy 12.9 Plt Count 195 Immature Gran % (Auto) 0.4 Neut % (Auto) 75.9 Lymph % (Auto) 17.2 Tate % (Auto) 5.9 Eos % (Auto) 0.2 Baso % (Auto) 0.4 Immature Gran # (Auto) 0.0 Neut # (Auto) 7.2 H Lymph # (Auto) 1.6 Tate # (Auto) 0.6 Eos # (Auto) 0.0 Baso # (Auto) 0.0 Puncture Site O2 Saturation ABG pH ABG pCO2 ABG pO2 ABG HCO3 ABG Total CO2 ABG Base Excess Massimo Test FiO2 % Sodium 132.1 L Potassium 4.07 Chloride 102.0 Carbon Dioxide 22.7 Anion Gap 11.47 BUN 12.9 Creatinine 0.82 Estimated GFR (MDRD) 73.00 BUN/Creatinine Ratio 15.73 Glucose 111.2 H Calcium 9.14 Total Bilirubin 0.59 AST 22.9 ALT 17.9 Alkaline Phosphatase 108.0 Total Protein 8.02 Albumin 4.21 Globulin 3.81 Albumin/Globulin Ratio 1.10 Influ A Molecular Assay Negative by naat Influ B Molecular Assay Negative by naat RSV Antigen 11/15/18 11/15/18 13:40 13:45 WBC RBC Hgb Hct MCV MCH MCHC RDW Coeff of Ivy Plt Count Immature Gran % (Auto) Neut % (Auto) Lymph % (Auto) Tate % (Auto) Eos % (Auto) Baso % (Auto) Immature Gran # (Auto) Neut # (Auto) Lymph # (Auto) Tate # (Auto) Eos # (Auto) Baso # (Auto) Puncture Site Rrad O2 Saturation 92.0 L ABG pH 7.378 ABG pCO2 31.9 L ABG pO2 63.0 L ABG HCO3 18.8 L ABG Total CO2 20 L ABG Base Excess -6 L Massimo Test + FiO2 % 21.0 Sodium Potassium Chloride Carbon Dioxide Anion Gap BUN Creatinine Estimated GFR (MDRD) BUN/Creatinine Ratio Glucose Calcium Total Bilirubin AST ALT Alkaline Phosphatase Total Protein Albumin Globulin Albumin/Globulin Ratio Influ A Molecular Assay Influ B Molecular Assay RSV Antigen Positive by naat H Orders Category Date Time Status ABG DRAW REQUEST Stat CARDIO 11/15/18 13:40 Ordered EKG-(ED ONLY) Stat CARDIO 11/15/18 13:44 Ordered NEBULIZER TREATMENT Stat CARDIO 11/15/18 13:40 Ordered ABG Stat LAB 11/15/18 13:40 Completed CBC W/ AUTO DIFF Stat LAB 11/15/18 13:35 Completed COMPREHENSIVE METABOLIC PANEL Stat LAB 11/15/18 13:35 Completed FLU A/B MOLECULAR Stat LAB 11/15/18 13:35 Completed MOLECULAR GROUP A STREP Stat LAB 11/15/18 13:35 Completed RSV Stat LAB 11/15/18 13:45 Completed Dexamethasone 4 mg/ml Inj [Decadron 4 mg/ml Sdv] MEDS 11/15/18 14:19 Discontinued 8 mg IM ONCE STA Ipratropium/Albuterol Neb [Duoneb] MEDS 11/15/18 13:40 Discontinued 1 vial NEB ONCE STA CHEST, 2 VIEWS PA & LAT Stat RADS 11/15/18 13:22 Completed Medications Discontinued Medications Generic Name Dose Route Start Last Admin Trade Name Freq PRN Reason Stop Dose Admin Albuterol/Ipratropium 1 vial 11/15/18 13:40 Duoneb NEB 11/15/18 13:41 ONCE STA Dexamethasone Sodium Phosphate 8 mg 11/15/18 14:19 Decadron 4 Mg/Ml Sdv IM 11/15/18 14:20 ONCE STA Vital Signs: Temp Pulse Resp BP Pulse Ox 11/15/18 12:48 99.4 F 80 20 118/83 91 L Departure - Departure Time of Disposition: 14:44 Disposition: HOME SELF-CARE Discharge Problem: RSV (acute bronchiolitis due to respiratory syncytial virus), Bronchitis Instructions: Respiratory Syncytial Virus (ED), Acute Bronchitis (ED) Condition: Good Pt referred to PMD for follow-up: Yes IPMP verified?: No Additional Instructions: Please call your Family Physician as soon as possible to schedule a follow-up appointment.stop your celebrex while on prednisone Prescriptions: Prednisone 10 mg PO DAILYWM #7 tablet Allergies/Adverse Reactions: Allergies erythromycin base Allergy (Severe, Verified 11/15/18 12:52) Mouth and throat crowley and swells Patient to notify drugstore Home Medications: Ambulatory Orders Albuterol Sulfate [Proair Hfa] 8.5 gm IH TID PRN PRN 02/24/17 Baclofen 10 mg PO TID 02/24/17 Budesonide/Formoterol Fumarate [Symbicort 160-4.5 Mcg Inhaler] 10.2 gm IH BID Celecoxib [Celebrex] 200 mg PO BEDTIME 02/24/17 Clobetasol Propionate/Emoll [Clobetasol Emollient 0.05% Crm] 60 gm TP BID PRN Ergocalciferol (Vitamin D2) [Vitamin D2] 50,000 unit PO WEEKLY 02/24/17 Prednisone 5 mg PO BID 02/24/17 Topiramate [Topamax] 200 mg PO BID 02/24/17 Vistaril 25 mg PO 1-2 caps every 6 hrs PRN 02/24/17 Zolpidem Tartrate [Ambien] 10 mg PO BEDTIME 02/24/17 Oxycodone-Acetaminophen 10-325 [Percocet 10-325] 1 tab PO QID PRN 09/18/17 Sumatriptan Succinate [Imitrex] 25 mg PO ONCE PRN 09/18/17 Dupilumab [Dupixent] 300 mg SQ 2 times monthly 06/08/18 Prednisone 10 mg PO DAILYWM #7 tablet 11/15/18 Disposition Discussed With: Patient, Family
[2018-11-15] MEDS ORDERED: PHENERGAN 25 MG/ML VIAL IM STA (14:42)
== END 2018-11-15 15:30 | disposition home or self-care (01) ==
LOC: ED 12:47
DX: J21.0 Acute bronchiolitis due to respiratory syncytial virus (principal); F17.210 Nicotine dependence, cigarettes, uncomplicated; Z79.899 Other long term (current) drug therapy
CPT/HCPCS: 36415; 80053; 82803; 85025; 87502; 87651; 87801; 93005; 93010; 94640; 96372; 99283

== ENCOUNTER 2019-04-24 08:22 | Outpatient (CLI) | END 2019-04-24 08:23 | disposition home or self-care (01) | LOC: LAB 08:22 | PROVIDERS: ATTEND Nurse Practitioner | DX: M81.0 Age-related osteoporosis without current pathological fracture (principal) | CPT/HCPCS: 36415; 82306; 82310 ==

== ENCOUNTER 2019-04-30 09:03 | Outpatient (CLI) ==
[2019-04-30 09:36] VITALS: BP 121/64; TEMP 98.2
[2019-04-30] MEDS ORDERED: PROLIA SUBCUT STA (09:41)
== END 2019-04-30 09:04 | disposition home or self-care (01) ==
LOC: OPMED 09:03
PROVIDERS: ATTEND Nurse Practitioner Family
DX: M81.0 Age-related osteoporosis without current pathological fracture (principal)
CPT/HCPCS: 96372